=== PATIENT | female | born 1985 | race Caucasian/White ===

== ENCOUNTER 2025-05-30 20:55 | Day surgery (SDC) | payer BC ==
[2025-05-30 21:31] VITALS: BMI 32.8
[2025-05-30] MEDS ORDERED: Acetaminophen 500 MG TAB PO PRN (23:18)
== END 2025-05-31 00:32 | disposition home or self-care (01) ==
LOC: CSHLD/OP 20:55
PROVIDERS: ATTEND Obstetrics & Gynecology
DX: O9A.213 Injury, poisoning and certain other consequences of external causes complicating pregnancy, third trimester (principal); S60.211A Contusion of right wrist, initial encounter; O36.8130 Decreased fetal movements, third trimester, not applicable or unspecified; O09.523 Supervision of elderly multigravida, third trimester; O47.03 False labor before 37 completed weeks of gestation, third trimester; Z3A.36 36 weeks gestation of pregnancy; Z90.89 Acquired absence of other organs; Z88.1 Allergy status to other antibiotic agents; Z79.899 Other long term (current) drug therapy; W01.0XXA Fall on same level from slipping, tripping and stumbling without subsequent striking against object, initial encounter
CPT/HCPCS: 59025; 76819; 99282

== ENCOUNTER 2025-06-23 18:00 | Inpatient (IN) | payer BC ==
[2025-06-23 20:24] VITALS: BMI 31.5
[2025-06-23] MEDS ORDERED: Oxytocin 30 units/NS 500 ML 500 ML IV SCH (20:25)
[2025-06-23] MEDS ORDERED: hydrALAZINE 20 MG/ML VIAL SLOW IVP PRN (20:25)
[2025-06-23] MEDS ORDERED: Lidocaine 1% (PF) 30 ML VIAL SC PRN (20:25)
[2025-06-23] MEDS ORDERED: Ondansetron PF 4 MG/2 ML Vial IVP PRN (20:25)
[2025-06-23] MEDS ORDERED: HYDROcodone/Acetaminophen 5/325 mg Tablet PO PRN ×2 (20:25)
[2025-06-23] MEDS ORDERED: Ibuprofen 800 MG TAB PO PRN (20:25)
[2025-06-23 20:41] LABS: Hematocrit 32.7 % (34.9-44.5); Hemoglobin 11.1 g/dL (12.0-15.5); Mean Corpuscular Hemoglobin 29.9 pg (27.0-33.0); Mean Corpuscular Volume 88.1 fL (81.6-98.3); Platelet Count 156 10x3/uL (150-450); Red Blood Cell (RBC) Count 3.71 10x6/uL (3.90-5.03); White Blood Cell (WBC) Count 7.37 10x3/uL (3.5-10.5)
[2025-06-23 21:12] LABS: Hep B Surf Ag - L&D Non-Reactive S/CO (NonReactive)
[2025-06-23 21:13] LABS: Syphilis Antibody Index 0.07 S/CO (<1.00 Non-Reactive)
[2025-06-23] MEDS: Dinoprostone 10 MG Suppository VAG SCH (21:17)
[2025-06-24] MEDS: Penicillin G Potassium 5 MILL.UNITS in Sodium Chloride 0.9% 100 ML IVPB SCH (03:34)
[2025-06-24] MEDS: Penicillin G 2.5 MILL.units 2.5 MILL.UNITS in Premix 1 BAG IVPB SCH (07:59)
[2025-06-24] MEDS: Penicillin G Potassium 5 MILL.UNITS VIAL ONE (08:06)
== END 2025-06-24 14:11 | disposition home or self-care (01) | DRG 833 ==
LOC: CSHLD 18:45 → UNDOADMIN 18:45 → CSHLD 06-24 03:22
PROVIDERS: ADMIT Obstetrics & Gynecology; ATTEND Obstetrics & Gynecology
DX: O99.820 Streptococcus B carrier state complicating pregnancy (principal); Z3A.39 39 weeks gestation of pregnancy; Z79.899 Other long term (current) drug therapy; Z53.29 Procedure and treatment not carried out because of patient's decision for other reasons
CPT/HCPCS: 85027; 86780; 86850; 86900; 86901; 87340; J2540